=== PATIENT | male | born 1995 | race Caucasian/White ===

== ENCOUNTER 2018-11-08 19:45 | Emergency (ER) | payer OTHER ==
[~2018-11-08] VITALS: Ht 182.9 cm; Wt 108.9 kg
[2018-11-08 19:53] VITALS: BP 121/69
[2018-11-08] MEDS ORDERED: IBUPROFEN 600 MG TABLET. PO ONE (21:15)
[2018-11-08] MEDS ORDERED: ACETAMINOPHEN 500 MG TABLET PO ONE (21:15)
[2018-11-08] MEDS ORDERED: IBUP600T16 PO (21:20)
--- NOTE | 2018-11-08 21:20 | PHYS DOC ---
Past History Past Medical History: No Pertinent History Past Surgical History: Other Alcohol Use: None Drug Use: None Adult General Chief Complaint Chief Complaint: ANKLE PROBLEM HPI HPI Patient is a 23 year old male who presents with complaint of right ankle injury. Patient states that he was playing basketball at approximately 1830 when he accidentally landed on another player's foot, causing his foot to invert. Patient felt immediate pain and a pop in his right ankle. Patient states that he is unable to bear full weight on the affected extremity. Pain is along the medial and lateral joint space of the ankle. Denies any pain in the foot or knee. Started ice prior to arrival. Has not started any other medications. Denies any other injuries. Review of Systems Review of Systems Constitutional: Denies fever or chills [] Eyes: Denies change in visual acuity, redness, or eye pain [] HENT: Denies nasal congestion or sore throat [] Respiratory: Denies cough or shortness of breath [] Cardiovascular: Denies chest pain or edema[] GI: Denies abdominal pain, nausea, vomiting, bloody stools or diarrhea [] : Denies dysuria or hematuria [] Musculoskeletal: Right ankle injury[] Integument: Denies rash or skin lesions [] Neurologic: Denies headache, focal weakness or sensory changes [] All other systems were reviewed and found to be within normal limits, except as documented in this note. Allergies Allergies No known drug allergies Physical Exam Physical Exam Constitutional: Alert, afebrile, appears in [id number] discomfort. [] HENT: Normocephalic, atraumatic, bilateral external ears normal, oropharynx moist, no oral exudates, nose normal. [] Eyes: PERRLA, EOMI, conjunctiva normal, no discharge. [] Neck: Normal range of motion, no tenderness, supple, no stridor. [] Cardiovascular:Heart rate regular rhythm, no murmur [] Lungs & Thorax: Bilateral breath sounds clear to auscultation [] Abdomen: Bowel sounds normal, soft, no tenderness, no masses, no pulsatile masses. [] Skin: Warm, dry, no erythema, no rash. [] Back: No tenderness, no CVA tenderness. [] Extremities: Medial and lateral soft tissue swelling of right ankle along bilateral malleoli, right greater than left, tenderness palpation at right lateral malleolus, no joint instability, no cyanosis, no clubbing, ROM intact, no edema. [] Neurologic: Alert and oriented X 3, normal motor function, normal sensory function, no focal deficits noted. [] Current Patient Data Vital Signs Vital Signs Date Time Temp Pulse Resp B/P (MAP) Pulse Ox O2 Delivery O2 Flow Rate FiO2 11/08/18 19:53 98.4 95 20 97 Room Air Lab Results Not performed EKG EKG Not performed[] Radiology/Procedures Radiology/Procedures 3 view right ankle x-ray interpreted by me: No fractures, normal alignment, significant lateral soft tissue swelling[] Course & Med Decision Making Course & Med Decision Making Pertinent Labs and Imaging studies reviewed. (See chart for details) X-rays negative for fracture. Patient treated with ibuprofen and Tylenol. Andrzej wrap applied to the right ankle as well as Aircast. Patient given crutches to assist with ambulation. Recommended RICE therapy with recommended follow-up in 7-10 days with primary doctor for reevaluation. Advised return to emergency department for any worsening symptoms per the patient was understanding and in agreement with treatment plan.[] Dragon Disclaimer Dragon Disclaimer This electronic medical record was generated, in whole or in part, using a voice recognition dictation system. Departure Departure: Impression: Primary Impression: Right ankle sprain Disposition: 01 HOME, SELF-CARE Condition: IMPROVED Referrals: PCP,UNKNOWN (PCP) Patient Instructions: Ankle Sprain, RICE - Routine Care for Injuries Additional Instructions: Follow-up with your primary doctor in 7-10 days for reevaluation. Return to the emergency department for any worsening symptoms. Scripts Ibuprofen (IBUPROFEN) 600 Mg Tablet 600 MG PO Q6HRS, #30 TAB Prov: NIRAJ JHA MD 11/08/18 Problem Qualifiers Primary Impression: Right ankle sprain Encounter type: initial encounter Involved ligament of ankle: anterior talofibular ligament Qualified Codes: S93.491A - Sprain of other ligament of right ankle, initial encounter NIRAJ JHA MD Nov 08, 2018 21:20
--- NOTE | 2018-11-08 22:03 | RAD ---
ANKLE RIGHT 3V History: rolled ankle playing basketball. Comparison: None are available Mild degenerative spurring at the tibiotalar joint. 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 Another small ossicle is seen just above the calcaneus at the tuberosity. Tiny calcification adjacent to the lateral malleolus. No evidence of an acute fracture. The ankle mortise and visualized joint spaces appear intact. There is mild soft tissue swelling at the lateral ankle. IMPRESSION: Tiny calcification adjacent to the distal lateral malleolus compatible with a small avulsion fracture. Age-indeterminate, but potentially acute given associated soft tissue swelling. No other fracture or dislocation seen. Electronically signed by: Noam Johnson MD (11/08/2018 9:59 PM) [facility]
== END 2018-11-08 21:42 | disposition home or self-care (01) ==
LOC: ER 19:45
DX: S93.491A Sprain of other ligament of right ankle, initial encounter (principal); X50.9XXA Other and unspecified overexertion or strenuous movements or postures, initial encounter; Y93.67 Activity, basketball; Y92.89 Other specified places as the place of occurrence of the external cause; Y99.8 Other external cause status
CPT/HCPCS: 73610; 99283; L4350

== ENCOUNTER 2022-01-24 10:16 | Emergency (ER) | payer OTHER ==
[~2022-01-24] VITALS: Ht 182.9 cm; Wt 105.0 kg
[~2022-01-24 10:16] MED LIST: IBUP600T16 PO
[2022-01-24 10:30] VITALS: BP 115/54
[2022-01-24] MEDS ORDERED: HYDROcodone/APAP 5/325MG 1 TAB TABLET PO ONE (10:30)
--- NOTE | 2022-01-24 10:50 | RAD ---
Study: XR KNEE 3 VIEWS_RT Indication: Fall injury. Pain. Comparison: None. Findings: Maintained femorotibial compartment joint space height. Chronic osseous remodeling and fragmentation at the tibial tuberosity. No acute fracture or traumatic malalignment. Possible small amount of knee joint fluid. Impression: 1. No acute fracture or traumatic malalignment. Possible small amount of knee joint fluid. If there i s concern for soft tissue injury eventual MRI could be considered. 2. Chronic changes at the tibial tuberosity. Grossly intact extensor mechanism with normal positionin g of the patella. 3. No significant femorotibial or patellofemoral compartment arthrosis. Electronically signed by: SAM THOMAS MD (01/24/2022 10:48 AM) [id number]
--- NOTE | 2022-01-24 11:09 | PHYS DOC ---
Past History Past Medical History: No Pertinent History Past Surgical History: No Surgical History Alcohol Use: None Drug Use: None General Adult EDM: Chief Complaint: KNEE INJURY HPI: HPI: Patient is a right knee pain after injuring himself while playing basketball. Patient states "I came back down after trying to make a basket, I feel like I hyperextended my leg". Pain is worse with ambulation. Denies taking anything at home for pain. Denies medical history. Up-to-date immunizations. Review of Systems: Review of Systems: ROS At least 10 ROS systems have been reviewed and are negative except as documented in the HPI. General: Negative except as outlined in HPI above. Skin: Negative except as outlined in HPI above. HEENT: Negative except as outlined in HPI above. Neck: Negative except as outlined in HPI above. Respiratory: Negative except as outlined in HPI above.. Cardiovascular: Negative except as outlined in HPI above. Abdomen: Negative except as outlined in HPI above. : Negative except as outlined in HPI above. Back/MSK: Negative except as outlined in HPI above. Neuro: Negative except as outlined in HPI above. Psych: Negative except as outlined in HPI above. Current Medications: Current Meds: Current Medications Medications (Trade) Dose Ordered Sig/Kenrick Start Time Stop Time Status Last Admin Dose Admin Acetaminophen/ Hydrocodone Bitart (Lortab 5/325) 1 tab 1X ONCE 01/24/22 10:30 01/24/22 10:38 DC Allergies: Allergies: Allergies Coded Allergies Type Severity Reaction Last Updated Verified No Known Allergies Allergy Unknown 11/08/18 Yes Physical Exam: PE: Constitutional: Well developed, well nourished, no acute distress, non-toxic appearance. [] HENT: Normocephalic, atraumatic, bilateral external ears normal, oropharynx moist, no oral exudates, nose normal. [] Eyes: PERRLA, EOMI, conjunctiva normal, no discharge. [] Neck: Normal range of motion, no tenderness, supple, no stridor. [] Cardiovascular:Heart rate regular rhythm, no murmur [] Lungs & Thorax: Bilateral breath sounds clear to auscultation [] Abdomen: Bowel sounds normal, soft, no tenderness, no masses, no pulsatile masses. [] Skin: Warm, dry, no erythema, no rash. [] Back: No tenderness, no CVA tenderness. [] Extremities: Right knee pain, no swelling, range of motion intact Neurologic: Alert and oriented X 3, normal motor function, normal sensory function, no focal deficits noted. [] Psychologic: Affect normal, judgement normal, mood normal. [] Current Patient Data: Vital Signs: Vital Signs Date Time Temp Pulse Resp B/P (MAP) Pulse Ox O2 Delivery O2 Flow Rate FiO2 01/24/22 10:30 97.4 63 16 115/54 (74) 97 Room Air EKG: EKG: [] Radiology/Procedures: Radiology/Procedures: []Study: XR KNEE 3 VIEWS_RT Indication: Fall injury. Pain. Comparison: None. Findings: Maintained femorotibial compartment joint space height. Chronic osseous remodeling and fragmentation at the tibial tuberosity. No acute fracture or traumatic malalignment. Possible small amount of knee joint fluid. Impression: 1. No acute fracture or traumatic malalignment. Possible small amount of knee joint fluid. If there is concern for soft tissue injury eventual MRI could be considered. 2. Chronic changes at the tibial tuberosity. Grossly intact extensor mechanism with normal positioning of the patella. 3. No significant femorotibial or patellofemoral compartment arthrosis. Electronically signed by: SAM THOMAS MD (01/24/2022 10:48 AM) [id number] Heart Score: C/O Chest Pain: No Risk Factors: Risk Factors: DM, Current or recent (<one month) smoker, HTN, HLP, family history of CAD, obesity. Risk Scores: Score 0 - 3: 2.5% MACE over next 6 weeks - Discharge Home Score 4 - 6: 20.3% MACE over next 6 weeks - Admit for Clinical Observation Score 7 - 10: 72.7% MACE over next 6 weeks - Early Invasive Strategies Course & Med Decision Making: Course & Med Decision Making Pertinent Labs and Imaging studies reviewed. (See chart for details) [] Patient presents with right knee pain. Hydrocodone given for discomfort. X-ray does not show any signs of fracture. Positive for fluid. Discussed results with patient. Advised patient he needs to follow-up with his PCP for possible further imaging such as an MRI. Educated on RICE. Patient given Andrzej wrap and crutches. Ibuprofen and Tylenol at home for discomfort. Keri Disclaimer: Keri Disclaimer: This electronic medical record was generated, in whole or in part, using a voice recognition dictation system. Departure Departure: Impression: Primary Impression: Knee pain, right Qualified Codes: M25.561 - Pain in right knee Disposition: HOME / SELF CARE / HOMELESS Condition: STABLE Referrals: PCP,UNKNOWN (PCP) Patient Instructions: Knee Pain, [id number], RICE - Routine Care for Injuries, [id number] Additional Instructions: You are seen in the emergency room for right knee pain after injuring it while playing basketball. X-ray does not show any fractures. It does show an increase in fluid on around your knee. Recommendation is to get further imaging such as an MRI to rule out injury. Rest, use ice to the injured area, continue wearing Andrzej wrap, elevate to help with swelling and pain. Ibuprofen and Tylenol for discomfort. Follow-up with your PCP so that you can get an MRI scheduled. Return to the emergency room if you have worsening symptoms or concerns. EMERGENCY DEPARTMENT GENERAL DISCHARGE INSTRUCTIONS Thank you for coming to [facility] (ED) today and trusting us with you care. We trust that you had a positivie experience in our Emergency Department. If you wish to speak to the department management, you may call the director at [phone]. YOUR FOLLOW UP INSTRUCTIONS ARE FOLLOWS: 1. Do you have a private Doctor? If you do not have a private doctor, please ask for a resource list of physicians or clinics that may be able to assist you with follow up care. 2. The Emergency Physician has interpreted your x-rays. The X-Ray specialist will also review them. If there is a change in the findings, you will be notified in 48 hours when at all possible. 3. A lab test or culture has been done, your results will be reviewed and you will be notified if you need a change in treatment. ADDITIONAL INSTRUCTIONS AND INFORMATION: 1. Your care today has been supervised by a physician who is specially trained in emergency care. Many problems require more than one evaluation for a complete diagnosis and treatment. We recommend that you schedule your follow up appointment as recommended to ensure complete treatment of you illness or injury. If you are unable to obtain follow up care and continue to have a problem, or if your condition worsens, we recommend that you return to the ED. 2. We are not able to safely determine your condition over the phone nor are we able to give sound medical advice over the phone. For these safety reasons, if you call for medical advice we will ask you to come to the ED for further evaluation. 3. If you have any questions regarding these discharge instructions please call the ED at [phone]. SAFETY INFORMATION: In the interest of safety, wellness, and injury prevention; we encourage you to wear your sealbelt, if you smoke; quite smoking, and we encourage family to use a protective helmet for bicycling and other sporting events that present an increased risk for head injury. IF YOUR SYMPTOMS WORSEN OR NEW SYMPTOMS DEVELOP, OR YOU HAVE CONCERNS ABOUT YOUR CONDITION; OR IF YOUR CONDITION WORSENS WHILE YOU ARE WAITING FOR YOUR FOLLOW UP APPOINTMENT; EITHER CONTACT YOUR PRIMARY CARE DOCTOR, THE PHYSICIAN WHOSE NAME AND NUMBER YOU WERE GIVEN, OR RETURN TO THE ED IMMEDIATELY. JUANCHO BLAIR APRN Jan 24, 2022 11:09
== END 2022-01-24 11:36 | disposition home or self-care (01) ==
LOC: ER 10:16
DX: M25.561 Pain in right knee (principal)
CPT/HCPCS: 73562; 99283